=== PATIENT | female | born 2000 | race Caucasian/White ===

== ENCOUNTER 2021-07-08 02:53 | Emergency (ER) | payer SELFPAY ==
[~2021-07-08] VITALS: Ht 167.6 cm; Wt 76.0 kg
[2021-07-08] MEDS ORDERED: IBUP-2029 MT (04:29)
[2021-07-08] MEDS ORDERED: IBUPROFEN 600MG TABLET PO ONE (04:30)
[2021-07-08] MEDS ORDERED: BO1 TP (04:53)
[2021-07-08 05:05] VITALS: BP 111/70
== END 2021-07-08 05:12 | disposition home or self-care (01) ==
LOC: ER 03:44
DX: R07.89 Other chest pain (principal); M25.561 Pain in right knee; G89.11 Acute pain due to trauma; S30.811A Abrasion of abdominal wall, initial encounter; V49.59XA Passenger injured in collision with other motor vehicles in traffic accident, initial encounter; Y93.89 Activity, other specified; Y92.488 Other paved roadways as the place of occurrence of the external cause
CPT/HCPCS: 71045; 73562; 99284